=== PATIENT | male | born 1950 | race Caucasian/White ===

== ENCOUNTER 2018-09-20 01:28 | Emergency (ER) | payer MEDICARE, MEDICAID ==
[~2018-09-20] VITALS: Ht 165.1 cm; Wt 86.2 kg
[2018-09-20 01:52] VITALS: BP 141/84
--- NOTE | 2018-09-20 01:54 | NUR ---
ED Nurse Note: Patient walked in to ER c/o bug bites. AAO x4, VSS at this time, skin is dry warm to touch.
[2018-09-20] MEDS ORDERED: BENADRYL25 MG ORAL (02:00)
[2018-09-20] MEDS ORDERED: BACTRIM DS TAB1 EAC1 ORAL (02:00)
[2018-09-20] MEDS ORDERED: Bactrim-DS 1 tab ORAL ONE (02:00)
--- NOTE | 2018-09-20 02:00 | Emergency Room Report ---
History of Present Illness General Chief Complaint: Skin Rash/Abscess Source: Patient Present Illness HPI This is a 68-year-old male with no past medical history. He presented with chief complaint of bug bite. He noticed some rash on his left ankle for couple days now. Now spreading up his body. Did not see anything biting him. Very itchy. No nausea no vomiting. No fever chills. Never had this problem before. Allergies: Coded Allergies: No Known Allergies (Unverified , 09/20/18) Patient History Past Medical History: none, see triage record, old chart reviewed Past Surgical History: none Pertinent Family History: none Social History: Denies: smoking Immunizations: other Reviewed Nursing Documentation: PMH: Agreed; PSxH: Agreed Review of Systems Eye: Denies: eye pain, blurred vision ENT: Denies: ear pain, nose congestion, throat swelling Respiratory: Denies: cough, shortness of breath Cardiovascular: Denies: chest pain, palpitations Gastrointestinal: Denies: abdominal pain, diarrhea, nausea, vomiting Musculoskeletal: Denies: back pain, joint pain Skin: Reports: rash Neurological: Denies: headache, numbness Endocrine: Denies: increased thirst, increased urine Hematologic/Lymphatic: Denies: easy bruising All Other Systems: negative except mentioned in HPI Physical Exam Vital Signs Date Time Temp Pulse Resp B/P (MAP) Pulse Ox O2 Delivery O2 Flow Rate FiO2 09/20/18 01:31 97.9 83 18 141/84 (103) 98 Room Air Vitals normal Sp02 EP Interpretation: reviewed, normal General Appearance: well appearing, no apparent distress, alert Head: normocephalic, atraumatic Eyes: bilateral eye PERRL, bilateral eye EOMI ENT: hearing grossly normal, normal pharynx Neck: full range of motion, supple, no meningismus Respiratory: chest non-tender, lungs clear, normal breath sounds Cardiovascular #1: regular rate, rhythm, no murmur Gastrointestinal: normal bowel sounds, non tender, no mass, no organomegaly, no bruit, non-distended Musculoskeletal: back normal, gait/station normal, normal range of motion Psychiatric: mood/affect normal Skin: other - He has erythematous circular rash on his dorsum of his left foot. There is also scatter one on his legs and torso. No abscess. Medical Decision Making Diagnostic Impression: Primary Impression: Cellulitis Qualified Codes: L03.90 - Cellulitis, unspecified ER Course Patient presents with a rash is consistent with cellulitis. Most likely MRSA. No recent hot tub or pool use. No evidence of any necrotizing fasciitis or abscess. Will discharge home. Dose of antibiotics given here. Last Vital Signs Date Time Temp Pulse Resp B/P (MAP) Pulse Ox O2 Delivery O2 Flow Rate FiO2 09/20/18 01:52 97.9 18 141/84 98 Room Air 09/20/18 01:31 83 Status: unchanged Disposition: HOME, SELF-CARE Condition: Stable Scripts Diphenhydramine Hcl* (BENADRYL*) 25 Mg Capsule 50 MG ORAL Q6H PRN for Itching, #30 CAP Prov: Jayjay Ho MD 09/20/18 Trimethoprim/Sulfamethoxazole 160/800* (BACTRIM DS TABLET*) 1 Each Tablet 1 TAB ORAL Q12H, #14 TAB 0 Refills Prov: Jayjay Ho MD 09/20/18 Additional Instructions: Follow-up with your doctor in 7 days. Return if symptoms worsen. Jayjay Ho MD Sep 20, 2018 02:00
[2018-09-20 02:07] VITALS: BP 141/84
--- NOTE | 2018-09-20 02:08 | NUR ---
ED Nurse Note: Pt cleared by health care Provider for discharge. DC instructions/prescription was given and explained to pt and verbalized understanding of teachings. All medical deviecs such as ID band removed. Pt is AAO x4, ambulatory and left with all personal belongings.
== END 2018-09-20 02:09 | disposition home or self-care (01) ==
LOC: EMR 02:01
DX: L03.90 Cellulitis, unspecified (principal)
CPT/HCPCS: 99282

== ENCOUNTER 2018-10-30 19:16 | Emergency (ER) | payer MEDICARE, MEDICAID ==
[~2018-10-30] VITALS: Ht 167.6 cm; Wt 88.5 kg
[~2018-10-30 19:16] MED LIST: BACTRIM DS TAB1 EAC1 ORAL; BENADRYL25 MG ORAL
[2018-10-30 19:30] VITALS: BP 144/79
--- NOTE | 2018-10-30 19:37 | Emergency Room Report ---
History of Present Illness General Chief Complaint: Skin Rash/Abscess Source: Patient Present Illness HPI 68-year-old male with history of hyperlipidemia currently controlled with simvastatin here complaining of pleuritic rash on bilateral lower extremities x2 days. Patient denies recent travel and camping. He has multiple macular lesions on bilateral ankles, not erythematous and not warm to touch. No pus drainage noted. Denies fever and chills, pain at the site of lesions. Denies nausea vomiting, abdominal pain, chest pain, shortness of breath, and other associated symptoms. Has not taken medication for symptom relief. Denies anaphylaxis Allergies: Coded Allergies: No Known Allergies (Unverified , 09/20/18) Patient History Past Medical History: see triage record Past Surgical History: unable to obtain Pertinent Family History: none Immunizations: UTD Reviewed Nursing Documentation: PMH: Agreed; PSxH: Agreed Nursing Documentation-PMH Hx Cardiac Problems: Yes - hypercholesteremia Hx Neurological Problems: Yes - arthritis Review of Systems All Other Systems: negative except mentioned in HPI Physical Exam Vital Signs Date Time Temp Pulse Resp B/P (MAP) Pulse Ox O2 Delivery O2 Flow Rate FiO2 10/30/18 19:17 98.4 84 17 144/79 (100) 97 Room Air Sp02 EP Interpretation: reviewed, normal General Appearance: well appearing, no apparent distress Head: normocephalic, atraumatic Eyes: bilateral eye normal inspection, bilateral eye PERRL ENT: hearing grossly normal, normal voice Neck: full range of motion, supple Respiratory: lungs clear, no respiratory distress, no wheezing, speaking full sentences Cardiovascular #1: normal inspection, regular rate, rhythm, no edema, no JVD, no murmur, normal capillary refill Gastrointestinal: normal inspection, normal bowel sounds, soft Rectal: deferred Genitourinary: no CVA tenderness Musculoskeletal: normal inspection, back normal, digits/nails normal, gait/ station normal, no calf tenderness Neurologic: normal inspection, alert, oriented x3, responsive, normal gait Psychiatric: normal inspection, judgement/insight normal, mood/affect normal Skin: warm/dry, rash - Multiple noninfected insect bites bilateral lower extremities Lymphatic: normal inspection, no adenopathy Medical Decision Making PA Attestation All my diagnosis and treatment plans were reviewed ad discussed with my supervising physician Dr. Gold Diagnostic Impression: Primary Impression: Insect bite of lower leg ER Course 68-year-old male with history of hyperlipidemia currently controlled with simvastatin here complaining of pleuritic rash on bilateral lower extremities x2 days. Patient denies recent travel and camping. He has multiple macular lesions on bilateral ankles, not erythematous and not warm to touch. No pus drainage noted. Denies fever and chills, pain at the site of lesions. Denies nausea vomiting, abdominal pain, chest pain, shortness of breath, and other associated symptoms. Has not taken medication for symptom relief. Denies anaphylaxis Ddx considered but are not limited to: Eczema, scabies, lice, infected insect bite, noninfected insect bite Vital signs: are WNL, pt. is afebrile H&PE are most consistent with: Noninfected insect bite ORDERS: Prednisone, hydrocortisone cream, Benadryl ED INTERVENTIONS: None required at this time. DISCHARGE: At this time pt. is stable for d/c to home. Will provide printed patient care instructions, and any necessary prescriptions. Care plan and follow up instructions have been discussed with the patient prior to discharge. At this time no sign of infection is noted however avoid scratching the affected area follow-up with a primary care provider if fever and chills, worsening symptoms return to the emergency room. Last Vital Signs Date Time Temp Pulse Resp B/P (MAP) Pulse Ox O2 Delivery O2 Flow Rate FiO2 10/30/18 19:17 98.4 84 17 144/79 (100) 97 Room Air Disposition: HOME, SELF-CARE Condition: Stable Scripts Diphenhydramine HCl (Benadryl) 25 Mg Capsule 25 MG PO TID, #21 CAP Prov: Belinda Manriquez 10/30/18 Hydrocortisone/Aloe Vera 1%* (HYDROCORTISONE-ALOE 1% CREAM*) Y Cr 1 APPLIC TOPIC Q6H PRN for Itching, #30 GM Prov: Belinda Manriquez 10/30/18 Prednisone* (PREDNISONE*) 10 Mg Tablet 10 MG ORAL BID for 5 Days, #10 TAB 0 Refills Prov: Belinda Manriquez 10/30/18 Patient Instructions: Insect Bite, [id number] Additional Instructions: Take medication as directed follow-up with your primary care provider at this time your lesions are not infected avoid scratching the affected area as you are exposing as it to infection. Belinda Manriquez Oct 30, 2018 19:37
[2018-10-30] MEDS ORDERED: BENADRYL25 M3 PO (19:38)
[2018-10-30] MEDS ORDERED: HYDROCORTISONE-30 GM TOPIC (19:38)
[2018-10-30] MEDS ORDERED: PREDNISONE10 MG ORAL (19:38)
--- NOTE | 2018-10-30 19:40 | NUR ---
ED Nurse Note: ER DISCHARGE NOTE: Patient is cleared to be discharged per ERMD, pt is aox4, on room air, with stable vital signs. pt was given dc and prescription instructions, pt was able to verbalize understanding, pt id band and iv site removed without complications. pt is able to ambulate with steady gait. pt took all belongings.
[2018-10-30 19:48] VITALS: BP 144/79
== END 2018-10-30 20:00 | disposition home or self-care (01) ==
LOC: EMR 19:56
DX: S80.862A Insect bite (nonvenomous), left lower leg, initial encounter (principal); S80.861A Insect bite (nonvenomous), right lower leg, initial encounter; E78.00 Pure hypercholesterolemia, unspecified; M19.90 Unspecified osteoarthritis, unspecified site; W57.XXXA Bitten or stung by nonvenomous insect and other nonvenomous arthropods, initial encounter; Y92.9 Unspecified place or not applicable
CPT/HCPCS: 99282